=== PATIENT | female | born 1980 | race Caucasian/White ===

== ENCOUNTER → 2017-07-02 | Outpatient (CLI) | payer OTHER ==
[~2017-07-02] MED LIST: ALLEGRA-D 24 H1 EACH; CLONAZEPAM0.5 MG; CLONAZEPAM1 MG; FLUCONAZOLE100 MG PO; FLUCONAZOLE200 MG PO; LAMICTAL XR300 MG; LAMICTAL200 MG PO; PREDNISONE20 MG; PREDNISONE20 MG PO; PREVACID 24HR15 MG; QUETIAPINE FUMA25 MG; ZYRTEC10 M3
== END | disposition home or self-care (01) ==
LOC: PPHC 08:42
DX: M54.5 Low back pain (principal)

== ENCOUNTER 2018-08-24 08:58 | Outpatient (CLI) | payer OTHER | END 2018-08-24 09:05 | disposition home or self-care (01) | LOC: SONOGRAMA 08:58 | DX: K76.0 Fatty (change of) liver, not elsewhere classified (principal); E04.8 Other specified nontoxic goiter ==

== ENCOUNTER 2018-09-07 10:10 | Outpatient (CLI) | payer OTHER | END 2018-09-07 10:41 | disposition home or self-care (01) | LOC: RAD 10:10 | DX: M54.6 Pain in thoracic spine (principal) ==

== ENCOUNTER 2018-09-09 07:37 | Outpatient (CLI) | payer OTHER | END 2018-09-09 07:40 | disposition home or self-care (01) | LOC: MAMO-SONO 07:37 | DX: Z12.31 Encounter for screening mammogram for malignant neoplasm of breast (principal); N64.89 Other specified disorders of breast ==

== ENCOUNTER 2019-04-03 14:14 | Emergency (ER) | payer OTHER ==
[~2019-04-03] VITALS: Ht 170.2 cm; Wt 88.9 kg
[2019-04-03] MEDS ORDERED: CLONAZEPAM0.125 MG PO (14:33)
[2019-04-03] MEDS ORDERED: LAMICTAL100 M1 PO (14:33)
[2019-04-03] MEDS ORDERED: CLONAZEPAM1 MG PO (14:34)
== END 2019-04-03 19:00 | disposition home or self-care (01) ==
LOC: ER 14:14
DX: K58.9 Irritable bowel syndrome, unspecified (principal)

== ENCOUNTER 2019-04-06 09:57 | Emergency (ER) | payer OTHER ==
[~2019-04-06] VITALS: Ht 170.2 cm; Wt 88.9 kg
[~2019-04-06 09:57] MED LIST changes: +CLONAZEPAM0.125 MG PO; +CLONAZEPAM1 MG PO; +LAMICTAL100 M1 PO
[2019-04-06] MEDS ORDERED: LEVSIN0.125 MG (10:26)
== END 2019-04-06 12:53 | disposition home or self-care (01) ==
LOC: ER 09:57
DX: K58.9 Irritable bowel syndrome, unspecified (principal); F41.8 Other specified anxiety disorders

== ENCOUNTER 2020-12-24 13:50 | Outpatient (CLI) | payer OTHER ==
[~2020-12-24 13:50] MED LIST changes: +LEVSIN0.125 MG
== END 2020-12-24 14:00 | disposition home or self-care (01) ==
LOC: PPH VACUNA 13:50
PROVIDERS: ATTEND Emergency Medicine Pediatric Emergency Medicine
DX: Z23 Encounter for immunization (principal)

== ENCOUNTER 2024-11-20 08:33 | Outpatient (CLI) | payer OTHER | END 2024-11-20 08:40 | disposition home or self-care (01) | LOC: MAMO-SONO 08:33 | DX: E04.1 Nontoxic single thyroid nodule (principal); Z12.31 Encounter for screening mammogram for malignant neoplasm of breast; E28.2 Polycystic ovarian syndrome ==